=== PATIENT | female | born 1950 | race Caucasian/White ===

== ENCOUNTER 2018-04-13 10:24 | Emergency (ER) | payer OTHER ==
[~2018-04-13] VITALS: Ht 167.6 cm; Wt 115.7 kg
[~2018-04-13 10:24] MED LIST: IBUPROFEN600 M1 PO; VICODIN 5-3001 EACH PO; ZOFRAN ODT4 M1 PO
[2018-04-13 10:52] VITALS: BP 147/84
--- NOTE | 2018-04-13 10:56 | ED HEADACHE COMPLAINT ---
History of Present Illness General Chief Complaint: Eye Problems Stated Complaint: L EYE PAIN Source: patient Exam Limitations: no limitations Vital Signs & Intake/Output Vital Signs & Intake/Output Vital Signs Date Time Temp Pulse Resp B/P B/P Pulse O2 O2 Flow FiO2 Mean Ox Delivery Rate 04/13 1052 98.2 76 18 147/84 98 Room Air Allergies Coded Allergies: Sulfa (Sulfonamide Antibiotics) (Severe, RESPIRATORY DISTRESS 02/17/16) morphine (Severe, HALUCINATIONS 02/17/16) acetaminophen (From PERCOCET) (NAUSEA 02/17/16) oxycodone (From PERCOCET) (NAUSEA 02/17/16) Reconcile Medications Hydrocodone/Acetaminophen (Vicodin 5-300 MG Tablet) 1 EACH TABLET 1 TAB PO BID PRN BREAKTHROUGH PAIN Ibuprofen 600 MG TABLET 1 TAB PO Q6 PRN PAIN with food Ondansetron (Zofran Odt) 4 MG TAB.RAPDIS 1 TAB PO Q6 PRN NAUSEA Triage Note: 68 YO FEMALE TO TRIAGE FOR EVAL OF L EYE PAIN SINCE FRIDAY REPORTS SHE THINKS SHE GOT SOMETHING IN IT. STATS SHE HAS FLUSHED IT OUT BUT FEELS ITS BEHIND THE EYE. DENIES VISUAL CHANGES. Triage Nurses Notes Reviewed? yes Onset: Gradual Duration: day(s): Timing: recent history Quality/Severity: achy Severity Numbers: 5 Head Injury Location: behind left eye HPI: 68yo female with hx of HTN presents to ED complaining of pain and pressure in left eye. Patient states she felt a pressure behind her left eye yesterday, patient initially thought she might have gotten something in the eye. She tried to flush the eye yesterday without relief of symptoms with water. She does not recall any rescent injury to the eye. Patient reports pain is like a headache behind her eye. Currently pain is 5/10. The patient denies head trauma or injury , blurry vision, floaters. (Judi TEMPELTON,Irma Ridley) Past History Travel History Traveled to [place] past 21 day No Medical History Any Pertinent Medical History? see below for history Neurological: NONE EENT: NONE Cardiovascular: hypertension Respiratory: COPD Gastrointestinal: NONE Hepatic: NONE Renal: NONE Musculoskeletal: sciatica Psychiatric: NONE Endocrine: hypothyroidism Blood Disorders: NONE Cancer(s): BREAST CA RAG BOILER/Reproductive: NONE Surgical History Surgical History: non-contributory Psychosocial History What is your primary language [place] Tobacco Use: Quit >30 days ago Family History Hx Contributory? No (Irma Saha) Review of Systems Review of Systems Constitutional: Reports: no symptoms. Eyes: Reports: see HPI. Ears, Nose, Throat, Mouth: Reports: no symptoms. Respiratory: Reports: no symptoms. Cardiovascular: Reports: no symptoms. Gastrointestinal/Abdominal: Reports: no symptoms. Genitourinary: Reports: no symptoms. Musculoskeletal: Reports: no symptoms. Skin: Reports: no symptoms. Neurological/Psychological: Reports: see HPI. Hematologic/Endocrine: Reports: no symptoms. Endocrine: Reports: no symptoms. Immunologic/Allergic: Reports: no symptoms. All Other Systems: Reviewed and Negative (Irma Saha) Physical Exam Physical Exam General Appearance: well developed/nourished, no apparent distress, alert, awake Head: atraumatic, normal appearance Eyes: Bilateral: normal appearance, PERRL, EOMI. Ears, Nose, Throat: normal pharynx, hearing grossly normal Neck: normal inspection, supple, full range of motion Respiratory: normal breath sounds, no respiratory distress, lungs clear Cardiovascular: regular rate/rhythm Back: normal inspection, normal range of motion Extremities: normal inspection Psychiatric: awake, alert, oriented x 3 Cranial Nerves: normal hearing, normal speech, PERRL, CN II-XII intact Coordination/Gait: normal finger to nose, normal gait Motor/Sensory: no motor/sensory deficits Skin: intact, normal color, warm/dry Comments: EYE: Intraocular pressure 19 bilaterally, left eye examined with fluorescein staining, no fluorescein uptake/foreign body/corneal abrasion detected. Core Measures Sepsis Present: No Sepsis Focused Exam Completed? No (Irma Saha) Progress Differential Diagnosis: cluster MACHADO, encephalitis, IC mass/tumor, intracranial Hem., migraine MACHADO, musculoskeletal pain, subarach. Hem., tension MACHADO, temporal arteritis, Corneal abrasion, foreign body, macular degeneration Plan of Care: Orders Procedure Date/time Status THYROID STIMULATING HORMONE 04/13 1241 Complete FREE T4 04/13 1241 Complete WESTERGREN SED RATE 04/13 1241 Complete CBC WITHOUT DIFFERENTIAL 04/13 1241 Complete Laboratory Tests 04/13/18 1250: TSH 10.300 H, Free T4 0.95, CBC w Diff NO MAN DIFF REQ, RBC 5.18, MCV 83.3, MCH 28.5, MCHC 34.3, RDW 15.1 H, MPV 10.4, Gran % 68.7, Lymphocytes % 23.5, Monocytes % 4.0, Eosinophils % 3.6, Basophils % 0.2, Absolute Granulocytes 5.3, Absolute Lymphocytes 1.8, Absolute Monocytes 0.3, Absolute Eosinophils 0.3, Absolute Basophils 0, ESR Westergren 7 Visual acuity left eye is 20/30. Patient encouraged to follow-up with her eye doctor tomorrow. ESR ordered to assess for temporal arteritis which is within normal limits, patient had no temporal tenderness on palpation, suspicion for oral arteritis in this patient. The patient requested thyroid testing so that she could inform her primary care doctor thyroid level. TSH is elevated however free T4 is within normal limits. Patient encouraged to follow up with her doctor regarding this abnormality and she understands she will require medication adjustment. Patient in no acute distress, neurologically intact, no focal neurologic deficit. She agrees with the plan of care. Diagnostic Imaging: Viewed by Me: CT Scan. Discussed w/RAD: CT Scan. Radiology Impression: PATIENT: KERWIN NUÑEZ PRESENT AGE: 68 PATIENT ACCOUNT NO: [id number] : 51 LOCATION: [facility] ORDERING PHYSICIAN: Irma TEMPLETON SERVICE DATE: 04/13/18 EXAM TYPE: CAT - CT HEAD WO IV CONTRAST EXAMINATION: CT HEAD WITHOUT CONTRAST CLINICAL INFORMATION: Headache behind left eye. Rule out intracranial hemorrhage , mass, lesion. COMPARISON: None TECHNIQUE: Contiguous axial imaging was performed from the skull base to vertex without intravenous administration of contrast. DLP: 613.88 mGy-cm FINDINGS: There is no evidence of acute intracranial hemorrhage or territorial infarction. No abnormal mass effect or midline shift is seen. Haas to white matter differentiation is well preserved. No extra-axial fluid collections are identified. The ventricles and sulci are mildly enlarged, consistent with age appropriate involutional change. There is no abnormal attenuation within the brain parenchyma. The osseous structures and soft tissues are normal. The mastoid air cells and visualized portions of the paranasal sinuses are well aerated. IMPRESSION: No acute intracranial pathology. DICTATED BY: Paula Devries MD DATE/TIME DICTATED:04/13/181123 DEVELOPER PROVER UPHOLSTERING:KIRSTIN DATE/TIME TRANSCRIBED:04/13/18 / 1124 CONFIDENTIAL, DO NOT COPY WITHOUT APPROPRIATE AUTHORIZATION. <Electronically signed in Other Vendor System> SIGNED BY: Paula Devries MD 04/13/18 1132 (Judi TEMPLETON,Irma Ridley) Departure Departure Disposition: HOME OR SELF CARE Condition: Stable Clinical Impression Primary Impression: Eye pain Qualifiers: Laterality: left Qualified Code: H57.12 - Ocular pain, left eye Referrals: Patient Has No Primary Care Dr (PCP/Family) Additional Instructions: Follow-up with the eye doctor tomorrow. I will call you with results of her lab testing. Return if worsening symptoms or concerns. Please note that there might be incidental findings in your evaluation that are unrelated to the current emergency department visit. Please notify your primary care doctor about this emergency department visit in order to obtain and review all of the testing performed so that these incidental findings can be monitored as needed. If you had an x-ray performed, please understand that some fractures may not be seen on the initial set of x-rays. If your symptoms persist you might need a repeat set of x-rays to check for such a fracture. If you had a laceration evaluated, please understand that foreign bodies such as glass or wood may not be visible to the naked eye or on plain x-rays. If the wound becomes red, swollen, increasingly more painful or if there is any drainage from the wound, please have it reevaluated by a physician for the possibility of a retained foreign body. If you're unable to follow up as outlined in the discharge instructions please return to the emergency department. Thank you for choosing the [facility] Emergency Department for your care. It was a pleasure to serve you today. Departure Forms: Customer Survey General Discharge Information (Irma Saha) PA/PILOT CONTROL OPERATOR HELPER Co-Sign Statement Statement: ED Attending supervision documentation- x I saw and evaluated the patient. I have also reviewed all the pertinent lab results and diagnostic results. I agree with the findings and the plan of care as documented in the PA's/PILOT CONTROL OPERATOR HELPER's documentation. [] I have reviewed the ED Record and agree with the PA's/PILOT CONTROL OPERATOR HELPER's documentation. [] Additions or exceptions (if any) to the PAs/PILOT CONTROL OPERATOR HELPER's note and plan are summarized below: [] (Yaya LONDONO,Gaurang)
--- NOTE | 2018-04-13 11:32 | CT SCAN REPORT ---
EXAMINATION: CT HEAD WITHOUT CONTRAST CLINICAL INFORMATION: Headache behind left eye. Rule out intracranial hemorrhage, mass, lesion. COMPARISON: None TECHNIQUE: Contiguous axial imaging was performed from the skull base to vertex without intravenous administration of contrast. DLP: 613.88 mGy-cm FINDINGS: There is no evidence of acute intracranial hemorrhage or territorial infarction. No abnormal mass effect or midline shift is seen. Haas to white matter differentiation is well preserved. No extra-axial fluid collections are identified. The ventricles and sulci are mildly enlarged, consistent with age appropriate involutional change. There is no abnormal attenuation within the brain parenchyma. The osseous structures and soft tissues are normal. The mastoid air cells and visualized portions of the paranasal sinuses are well aerated. IMPRESSION: No acute intracranial pathology.
[2018-04-13 12:58] LABS: ABSOLUTE BASOPHIL COUNT 0 /CUMM (0.0-0.2); ABSOLUTE EOSINOPHIL COUNT 0.3 /CUMM (0.0-0.7); ABSOLUTE GRANULOCYTE CT 5.3 /CUMM (1.4-6.5); ABSOLUTE LYMPH COUNT 1.8 /CUMM (1.2-3.4); ABSOLUTE MONOCYTE COUNT 0.3 /CUMM (0.10-0.60); BASOPHIL % 0.2 % (0.0-2.0); EOSINOPHIL % 3.6 % (0-5); GRANULOCYTE % 68.7 % (42.2-75.2); HEMATOCRIT 43.2 % (37-47); MEAN CORPUSCULAR HGB 28.5 PG (27.0-31.0); MEAN CORPUSCULAR HGB CONC 34.3 G/DL (33.0-37.0); MEAN CORPUSCULAR VOLUME 83.3 FL (81.0-99.0); MEAN PLATELET VOLUME 10.4 FL (7.4-10.4); PLATELET COUNT 208 /CUMM (130-400); RBC DISTRIBUTION WIDTH 15.1 % (11.5-14.5); RED BLOOD CELL CT 5.18 /CUMM (4.20-5.40); WHITE BLOOD CELL COUNT 7.7 /CUMM (4.8-10.8)
== END 2018-04-13 12:59 ==
LOC: ERH 10:24
PROVIDERS: Physician Assistant
DX: H57.12 Ocular pain, left eye (principal); I10 Essential (primary) hypertension; J44.9 Chronic obstructive pulmonary disease, unspecified; E03.9 Hypothyroidism, unspecified; R51 Headache